=== PATIENT | male | born 1980 | race Two or more races ===

== ENCOUNTER 2016-08-14 11:05 | Emergency (ER) | payer SELFPAY ==
[2016-08-14 11:10] VITALS: RESP 16; TEMP 98.2
--- NOTE | 2016-08-14 11:19 | EDPHY ---
H & P Stated Complaint: Hx seizures, left meds in [place] HPI/ROS: CHIEF COMPLAINT: Requesting medication refill HISTORY OF PRESENT ILLNESS: This is a 36-year-old male with a reported history of seizure disorder, PTSD, anxiety, low-back pain/carpal tunnel syndrome and neuropathy. He tells me that he takes clonazepam 2 mg three times daily for his anxiety. He takes gabapentin 800 mg four times daily for his seizure disorder. He uses tramadol 100 mg four times daily for his chronic pain. He denies the use of illicit drugs. He does not drink alcohol. [place] and tells me that he forgot to bring his medications. Earlier today felt as if he might have a seizure, but did not do so. His seizures are tonic-clonic. His last seizure was 6 months ago. He mentioned to the triage nurse that he felt lightheaded, confused, and dizzy. He currently denies all of these symptoms. REVIEW OF SYSTEMS: A ten point review of systems was performed and is negative with the exception of the items mentioned in the HPI. Source: Patient, Family Exam Limitations: No limitations - Personal History Current Tetanus Diphtheria and Acellular Pertussis (TDAP): Yes - Medical/Surgical History Hx Asthma: No Hx Chronic Respiratory Disease: No Hx Diabetes: No Hx Cardiac Disease: No Hx Renal Disease: No Hx Cirrhosis: No Hx Alcoholism: No Hx HIV/AIDS: No Hx Splenectomy or Spleen Trauma: No Other PMH: 1. Seizure disorder. 2. PTSD. 3. Anxiety. 4. Peripheral neuropathy. 5. Chronic low back pain. 6. Carpal tunnel syndrome - Social History Smoking Status: Heavy smoker Alcohol Use: Rarely Drug Use: None Additional Social History: He and his are driving to [place], with the thought that they might be moving there. - Physical Exam Exam: General Appearance: Alert. Vital signs reviewed. Blood pressure 129/96. Eyes: Pupils equal and round, no conjunctival injection, no discharge. Anicteric. ENT, Mouth: Mucous membranes are moist, no oropharyngeal erythema or edema. Scabs on his right lower lip, no vesicular lesions. Neck: No lymphadenopathy, supple. Respiratory: Lungs are clear to auscultation; no wheezes, rales, or rhonchi. Cardiovascular: Regular rate and rhythm; no murmur, rub, or gallop. Gastrointestinal: Abdomen is soft and nontender, no masses or organomegaly, bowel sounds normal. Skin: Warm and dry, no rashes on exposed skin, normal color. Neurological: Alert and oriented. Moving all four extremities easily and equally. JULIO. EOMI. Facial expression symmetric. Psychiatric: Normal affect. No agitation. Constitutional: Initial Vital Signs Temperature (C) 36.8 C 08/14/16 11:06 Heart Rate 95 08/14/16 11:06 Respiratory Rate 16 08/14/16 11:06 Blood Pressure 129/96 H 08/14/16 11:06 O2 Sat (%) 95 08/14/16 11:06 O2 Delivery Mode Room Air Allergies/Adverse Reactions: No Known Allergies Allergy (Unverified 08/14/16 11:10) Home Medications: Medication Instructions Recorded CLONAZEPAM 08/14/16 Gabapentin 800 mg 08/14/16 Gabapentin [Gabapentin 800 mg] 800 mg PO QID #0 tablet 08/14/16 traMADol 08/14/16 Medical Decision Making ED Course/Re-evaluation: Patient is here for medication prescriptions. He is requesting clonazepam, gabapentin, and tramadol. I searched the [place] PDMP and he does not appear. He tells me that he fills his prescriptions at a [facility] in his hometown of [place], [place]. I was able to reach a pharmacist at that facility and they did a PDMP surgeon his state. There are no prescriptions for clonazepam that they find. He has had prescriptions for gabapentin, 800 mg three times daily. The last prescription that could be located was February of 2016. He has received tramadol 50 mg dispense 90, with the last prescription being filled in January of 2016. The prescribing physicians were not the name that he provided to me. I presented the above information to the patient and his . They had no explanation for the discrepancies. I have agreed to refill his gabapentin, but have explained to him that he will not receive any other prescriptions from the emergency department. I have recommended that he contact his prescribing physician if he needs refills. He left without event. I suspect drug-seeking behavior. I explained to him that tramadol, in high doses, can cause seizure activity. I do not know how long he has been without tramadol. By his report, he has not had his medications for the last 4 to 5 days. Departure - Departure Disposition: Home, Routine, Self-Care Clinical Impression: Seizure disorder, Medication refill Condition: Good Instructions: Medicine Refill (ED) Additional Instructions: As we discussed, I cannot refill your prescriptions for tramadol or clonazepam. You will need to speak with the prescribing physician about obtaining prescriptions for these medications. Referrals: BO ESPINOSA [Other] - As per Instructions Prescriptions: Gabapentin [Gabapentin 800 mg] 800 mg PO QID #0 tablet
[2016-08-14 12:34] VITALS: BP 122/68; PULSE 78; O2SAT 97
== END 2016-08-14 12:36 | disposition home or self-care (01) ==
DX: Z76.0 Encounter for issue of repeat prescription (principal); G40.909 Epilepsy, unspecified, not intractable, without status epilepticus; F17.200 Nicotine dependence, unspecified, uncomplicated